=== PATIENT | male | born 1975 | race Caucasian/White ===

== ENCOUNTER 2025-02-04 22:37 | Inpatient (IN) ==
[2025-02-04] MEDS: ONDANSETRON INJ 2 MG/ML 2 ML VIAL IV STA (23:12)
[2025-02-04] MEDS: HYDROmorphone INJ 0.5 MG/0.5 ML SYR IV STA (23:12)
[2025-02-04 23:14] LABS: Appearance Urine Clear (Clear); Bacteria Urine Automated None Seen (None Seen); Epithelial Cell Urine Auto 0-2 /hpf (0-2); Glucose Urine UA Negative (Negative); RBC Urine Automated 0-2 /hpf (0-2); WBC Urine Automated 0-5 /hpf (0-5)
[2025-02-04 23:23] LABS: Hematocrit (blood only) 32.8 % (42.0-52.0); Hemoglobin 11.0 g/dL (14.0-18.0); Immature Granulocytes # (auto) 0.51 K/uL (0.01-0.20); Immature Granulocytes % (auto) 3.7 %; Mean Corpuscular Hemoglobin 29.6 pg (25.0-34.0); Mean Corpuscular Volume 88.2 fL (80.0-100.0); Platelet Count 560 K/uL (130-400); RDW Standard Deviation 43.2 fL (36.4-46.3); Red Blood Count 3.72 M/uL (4.70-6.10); White Blood Count 13.91 K/ul (4.8-10.8)
[2025-02-04 23:46] LABS: Alanine Aminotransferase 13.0 U/L (7-52); Albumin Globulin Ratio 0.9 (0.9-2); Albumin Level 3.8 gm/dl (3.4-5.0); Alkaline Phosphatase 164.0 U/L (34-104); Anion Gap 12.0 (3-11); Bilirubin,Total 0.3 mg/dl (0.2-1.0); Blood Urea Nitrogen 13.0 mg/dl (6-23); Calcium 9.2 mg/dl (8.6-10.3); Carbon Dioxide 24.0 mmol/L (21-32); Chloride 99.0 mmol/L (98-107); Creatinine Clr Calc Pharmacy 77.6 ml/min; Globulin 4.3 gm/dl (2.5-4.0); Glucose 110.0 mg/dl (70-99(Fasting)); Lipase 242.0 U/L (11-82); Potassium 3.8 mmol/L (3.5-5.1); Sodium 135.0 mmol/L (136-145); Total Protein 8.1 gm/dl (6.0-8.3)
--- NOTE | 2025-02-04 23:48 | Emergency Department Note ---
Impression & Plan Acute pancreatitis ED Provider Note NAME: KELLEN CABRERA AGE: 49 SEX: M : 1975 ARRIVES VIA: Walk-In INFORMANT: Patient, ED PROVIDER(S): Bo Alex MD CHIEF COMPLAINT: Pancreatitis, abdominal pain HPI: This is a 49-year-old male with history of alcohol use, presenting for pancreatitis, abdominal pain. Patient states he was at an outside hospital previously for alcohol-induced pancreatitis. He was reportedly placed on phenobarbital. He reports he left AMA due to inadequate pain control. He was getting Dilaudid and fentanyl in the hospital. He reports persistent nausea, vomiting abdominal pain since leaving. No chest pain with this. No shortness of breath. He reports not drinking alcohol since leaving the hospital. ROS: See above HPI for pertinent positives & negatives. A total of 10 systems reviewed and were otherwise negative. PAST MEDICAL HISTORY: See Below PAST SURGICAL HISTORY: See Below FAMILY HISTORY: See Below SOCIAL HISTORY: See Below HOME MEDICATIONS: See Below ALLERGIES: See Below VITALS: See Below PHYSICAL EXAMINATION: General: Disheveled, chronic ill-appearing Head: Normocephalic and atraumatic Eyes: Normal inspection, extraocular muscles intact Ear, nose, throat: Normal external exam Neck: Normal range of motion Respiratory: lungs clear to auscultation bilaterally Cardiovascular: Regular rate/rhythm, no murmur GI: soft, nontender, no guarding or rebound Extremities: nontender, moves all extremities Neuro: The patient awake and alert, appropriately conversive, no focal deficits, symmetric faces Skin: Warm, dry, and intact MEDICAL DECISION MAKING: This is a 49-year-old male history of alcohol use presenting for pancreatitis/abdominal pain. Patient notes he was diagnosed with pancreatitis, duodenitis at outside hospital. He left AMA on , 5 days ago. He did follow with his primary care doctor yesterday with persistent abdominal pain/vomiting and was advised to come back to the ER. He states his works here after his came to this hospital. - Patient notes he has not been drinking since leaving the hospital. He does feel dehydrated. He notes persistent nausea and vomiting. - Will do screening blood work to assess for signs of pancreatitis. Patient does have a tender abdomen and is tachycardic currently. Give fluids, pain control. Consider alcohol withdrawal as well. -Slight leukocytosis to 13.91. Anemia to 11. No significant. There is elevated lipase at 242 -Patient has required doses of Dilaudid and fentanyl while here due to persistent pain. - Will admit to the hospital service due to concerns of continued pancreatitis. He states he does not feel he is in alcohol withdrawal otherwise. Differential diagnosis: Pancreatitis, hepatitis, duodenitis, alcohol withdrawal, diverticulitis Independent History obtained from: [facility] interpreted by me: ECG: None Cardiac Monitoring: An order was placed for continuous cardiac monitoring. The monitor shows a rate of 115 with sinus tachycardia rhythm. Past Med/Surg History Problem List (Updated 02/05/25 @ 04:18 by Bo Alex MD) Acute pancreatitis (Acute) Social History Smoking Status: Light tobacco smoker Hx Alcohol Use: Yes Alcohol type: beer Hx Substance Use: Yes Preferred Language: Spanish Beliefs That Will Affect Care: None Current Living Situation: Other Current Living Situation Comment: Home Feels Safe at Home: Yes Safety Concerns: Feels Safe At This Time Allergies Allergies Allergy/AdvReac Type Severity Reaction Status Date / Time hydrocodone [From Vicodin] Allergy Intermediate SHORT OF Verified 02/04/25 23:43 BREATH/HIVES Home Meds Home Medications Medication Instructions Recorded Confirmed albuterol sulfate 90 mcg/actuation 2 puff inhalation Q4H PRN Wheezing 02/04/25 02/04/25 aerosol inhaler bupropion HCl 300 mg 24 hr tablet, 300 mg PO QAM 02/04/25 02/04/25 extended release (Wellbutrin XL) duloxetine 30 mg capsule,delayed 30 mg PO DAILY 02/04/25 02/04/25 release duloxetine 60 mg capsule,delayed 60 mg PO DAILY 02/04/25 02/04/25 release gabapentin 300 mg capsule 300 mg PO QID 02/04/25 02/04/25 hydroxyzine HCl 50 mg tablet 50 mg PO HS PRN Insomnia 02/04/25 02/04/25 [id number]-fqw-alybm acid-vit 1 tab PO DAILY 02/04/25 02/04/25 K-lycop 400 mcg-20 mcg-370 mcg tablet (Men's 50 Plus Multivitamin) omeprazole 20 mg capsule,delayed 20 mg PO DAILYBB 02/04/25 02/04/25 release ondansetron HCl 4 mg tablet 4 mg PO Q6H PRN NAUSEA/VOMITING 02/04/25 02/04/25 oxycodone 5 mg tablet 5 mg PO Q6H PRN Pain 02/04/25 02/04/25 potassium gluconate 595 mg (99 mg) 595 mg PO DAILY 02/04/25 02/04/25 tablet Results & Data (ED) Vital Signs Vital Signs - 24 hr 02/04/25 22:40 02/04/25 22:57 02/04/25 22:58 Temperature 37.3 C 36.9 C Temperature Source Temporal Artery Scan Oral Pulse Rate 128 H 122 H Pulse Rate [Right Finger] 121 H Pulse Rhythm Regular Pulse Rhythm [Right Finger] Regular Pulse Strength Normal Pulse Strength [Right Finger] Normal Respiratory Rate 18 18 Respiratory Effort / Characteristics Non-Labored Spontaneous Non-Labored Spontaneous Respiratory Depth Normal Normal Respiratory Pattern Regular Regular Blood Pressure 132/86 Blood Pressure [Right Arm] 159/113 H Blood Pressure Mean 101 Blood Pressure Mean [Right Arm] 128 Blood Pressure Position Sitting Blood Pressure Position [Right Arm] Lying Pulse Oximetry 97 97 Oxygen Delivery Method Room Air Room Air Oxygen Flow Rate Sepsis Recent Fever Within 48 Hours No Sepsis New/Unexplained Change in Mental Status N/A Sepsis Action Taken by Nursing No Action Required 02/04/25 23:02 02/05/25 00:38 Temperature Temperature Source Pulse Rate 118 H Pulse Rate [Right Finger] 115 H Pulse Rhythm Regular Pulse Rhythm [Right Finger] Regular Pulse Strength Pulse Strength [Right Finger] Normal Respiratory Rate 20 19 Respiratory Effort / Characteristics Non-Labored Spontaneous Respiratory Depth Normal Respiratory Pattern Regular Blood Pressure Blood Pressure [Right Arm] 120/85 Blood Pressure Mean Blood Pressure Mean [Right Arm] 96 Blood Pressure Position Blood Pressure Position [Right Arm] Lying Pulse Oximetry 98 96 Oxygen Delivery Method Room Air Room Air Oxygen Flow Rate 0 Sepsis Recent Fever Within 48 Hours Sepsis New/Unexplained Change in Mental Status Sepsis Action Taken by Nursing Laboratory Data 02/04/25 23:06 02/04/25 23:06 Lab Results 02/04/25 02/04/25 02/04/25 Range/Units 22:40 23:06 23:26 WBC 13.91 H (4.8-10.8) K/ul RBC 3.72 L (4.70-6.10) M/uL Hgb 11.0 L (14.0-18.0) g/dL Hct 32.8 L (42.0-52.0) % MCV 88.2 (80.0-100.0) fL MCH 29.6 (25.0-34.0) pg MCHC 33.5 (32.0-36.0) g/dL RDW Std Deviation 43.2 (36.4-46.3) fL RDW Coeff of Serenity 13.4 (11.5-14.5) % Plt Count 560 H (130-400) K/uL MPV 9.3 L (9.4-12.4) fL Immature Gran % (Auto) 3.7 % Neut % (Auto) 69.5 % Lymph % (Auto) 17.0 % [place] % (Auto) 7.3 % Eos % (Auto) 1.9 % Baso % (Auto) 0.6 % Neut # (Auto) 9.67 H (1.40-6.50) K/uL Lymph # (Auto) 2.37 (1.20-3.40) K/uL [place] # (Auto) 1.01 H (0.11-0.59) K/uL Eos # (Auto) 0.26 (0.00-0.50) K/uL Baso # (Auto) 0.09 (0.00-0.20) K/uL Immature Gran # (Auto) 0.51 H (0.01-0.20) K/uL Sodium 135 L (136-145) mmol/L Potassium 3.8 (3.5-5.1) mmol/L Chloride 99 (98-107) mmol/L Carbon Dioxide 24 (21-32) mmol/L Anion Gap 12 H (3-11) BUN 13 (6-23) mg/dl Creatinine 1.20 (0.6-1.4) mg/dl Est Cr Clr Drug Dosing 77.6 ml/min eGFR 73.67 BUN/Creatinine Ratio 10.8 (10-20) Glucose 110 H (70-99(Fasting)) mg/dl Lactate 0.8 (0.4-2.0) mmol/L Calcium 9.2 (8.6-10.3) mg/dl Magnesium 1.8 (1.7-2.4) mg/dl Total Bilirubin 0.3 (0.2-1.0) mg/dl AST 16 (13-39) U/L ALT 13 (7-52) U/L Alkaline Phosphatase 164 H (34-104) U/L Total Protein 8.1 (6.0-8.3) gm/dl Albumin 3.8 (3.4-5.0) gm/dl Globulin 4.3 H (2.5-4.0) gm/dl Albumin/Globulin Ratio 0.9 (0.9-2) Lipase 242 H (11-82) U/L Procalcitonin 0.17 (0-0.5) ng/ml Urine Color Yellow Urine Appearance Clear (Clear) Urine pH 5.5 (4.5-7.5) Ur Specific [place] 1.016 (1.000-1.030) Urine Protein 2+ H (Negative) Urine Glucose (UA) Negative (Negative) Urine Ketones Negative (Negative) Urine Blood Trace H (Negative) Urine Nitrite Negative (Negative) Urine Bilirubin Negative (Negative) Urine Urobilinogen Negative (Negative) Ur Leukocyte Esterase Negative (Negative) Urine WBC (Auto) 0-5 (0-5) /hpf Urine RBC (Auto) 0-2 (0-2) /hpf U Hyaline Cast (Auto) 3-5 H (0-2) /lpf U Epithel Cells (Auto) 0-2 (0-2) /hpf Urine Bacteria (Auto) None Seen (None Seen) Urine Comment Ethyl Alcohol mg/dL < 10.0 (<10.0) mg/dl Administered Medications Gabapentin (Gabapentin 300 Mg Cap) 300 mg PO QID LYNN Stop: 03/07/25 01:39 Last Admin: 02/05/25 02:59 Dose: Not Given Documented By: [facility] Hydroxyzine HCl (Hydroxyzine Hcl 25 Mg Tab) 50 mg PO HS PRN PRN Reason: Insomnia Stop: 03/07/25 01:34 Last Admin: 02/05/25 03:21 Dose: 50 mg Documented By: [facility] Potassium Chloride 20 meq/ (Lactated Ringer's) 1,010 mls @ 200 mls/hr IV .Q5H3M STA Stop: 02/05/25 05:40 Last Infusion: 02/05/25 03:00 Dose: 0 mls/hr Documented By: [facility] Admin: 02/05/25 01:17 Dose: 200 mls/hr Documented By: [facility] Morphine Sulfate (Morphine Sulfate 4 Mg/Ml 1 Ml Carp\Vial) 4 mg IV Q4H PRN PRN Reason: Pain Stop: 02/19/25 00:59 Last Admin: 02/05/25 03:22 Dose: 4 mg Documented By: JEANETTE Discontinued Medications Clonidine HCl (Clonidine Hcl 0.1 Mg Tab) 0.1 mg PO NOW STA Stop: 02/05/25 00:35 Last Admin: 02/05/25 00:58 Dose: 0.1 mg Documented By: DUSTIN Fentanyl Citrate (Fentanyl Citrate Pf 100 Mcg/2 Ml Vial) 50 mcg IV NOW STA Stop: 02/05/25 00:14 Last Admin: 02/05/25 00:29 Dose: 50 mcg Documented By: DUSTIN Gabapentin (Gabapentin 600 Mg Tab) 1,200 mg PO NOW ONE; Protocol Stop: 02/05/25 00:49 Last Admin: 02/05/25 02:01 Dose: Not Given Documented By: DUSTIN Hydromorphone HCl (Hydromorphone Inj 0.5 Mg/0.5 Ml Syr) 0.5 mg IV NOW STA Stop: 02/04/25 22:56 Last Admin: 02/04/25 23:12 Dose: 0.5 mg Documented By: DUSTIN Thiamine HCl 100 mg/ Syringe 10 mls @ 2 mls/min IV NOW STA Stop: 02/05/25 00:44 Last Admin: 02/05/25 01:16 Dose: 2 mls/min Documented By: DUSTIN Magnesium Sulfate/Dextrose (Magnesium Sulfate / D5w) 1 gm in 100 mls @ 50 mls/hr IV ONE STA Stop: 02/05/25 03:34 Last Admin: 02/05/25 02:06 Dose: 50 mls/hr Documented By: DUSTIN Ondansetron HCl (Ondansetron Inj 2 Mg/Ml 2 Ml Vial) 4 mg IV NOW STA Stop: 02/04/25 22:45 Last Admin: 02/04/25 23:12 Dose: 4 mg Documented By: DUSTIN Discharge Plan Visit Data Chief Complaint: Abdominal Pain Stated Complaint: ABD PAIN, VOMITING, ACTIVE PANCREATITIS ED Provider: Bo Alex Discharge Problem: Acute pancreatitis Patient Disposition: Admitted As Inpatient Condition: Fair Discharge Instructions Interventions: ED Discharge Assessment Last Done: 02/05/25 03:17
[2025-02-05] MEDS ORDERED: ACETAMINOPHEN 500 MG TAB PO PRN (00:39)
--- NOTE | 2025-02-05 00:39 | History & Physical Report ---
Date of Service February 05, 2025 Assessment & Plan (1) Acute pancreatitis: Plan: Assessment and plan below following discussion of case with ED provider and reviewing patient history/pertinent normal/abnormal diagnostic test results. Alcoholic pancreatitis HCV, untreated today Right neck pain of 3 months duration, etiology to be determined GERD, on PPI chronic anemia, hemoglobin at baseline ADHD, anxiety/mood disorder Hyperglycemia rule out DM past history of substance abuse ongoing tobacco abuse Admit to med/tele given potential for alcohol withdrawal IVF, analgesia GI consult re: pancreatitis AWSS at risk protocol, Librium taper if with signs of EtOH withdrawal, DT precautions CT cervical spine May benefit from MRI cervical spine if above study unremarkable check hemoglobin A1c DVT prophylaxis. SCDs for now until CT cervical spine resulted Full code Text document was generated using [employer] voice recognition software. It may contain grammatical or spelling errors. Kindly contact undersigned for clarification of any documentation item in question. History of Present Illness Chief Complaint: Persistent abdominal pain Primary Care Provider: Dr. Moreno History obtained from patient and records. Medical history significant for HCV, GERD, pancreatitis, chronic anemia (baseline hemoglobin 11-12), osteoarthritis, ADHD, anxiety/mood disorder, history of left pneumothorax, lung nodule, past history of substance abuse, alcohol abuse, ongoing tobacco abuse. Recent confinement [facility] January 25 to 2024 for pancreatitis in the setting of alcohol abuse. 2 CAT scans of the abdomen and pelvis done during confinements. 11 Stranding along the course of the duodenum and pancreas, probably related to acute pancreatitis though can not exclude infectious or inflammatory changes of duodenum or other adjacent retroperitoneal structure. Clinical correlation. 01/27 1. Persistent abnormal thickening of the duodenal throughout with increasing surrounding inflammatory change extending into the right and left anterior pararenal spaces which then extend into the right and left pelvis. There is increased edema of the 4th portion of the duodenum. No perforation of the duodenal or retroperitoneal abscess identified. 2. There is mild stranding around the head of the pancreas, but this most likely represents a duodenal process rather than a pancreatitis. 3. There are a few diverticula of the sigmoid colon but no diverticulitis. 4. Mild increase in right basilar atelectasis and new trace right effusion. 5. No free air. 6. Probable early anasarca in the subcutaneous tissues of the pelvis. 7. Perifissural nodule along the inferior right major fissure.Recommend follow-up CT Chest in 6-12 months. 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 Persistent achy upper abdominal pain with 1 episode of bilious emesis. No chest pain, no SOB. No fever, no chills. Admits to 1 alcoholic beverage intake upon returning home last week. Persistent right sided neck pain going to his ear for 3 months now without arm or leg weakness. No recollection of trauma. Medical History as above Surgical History : Dental surgery, hernia repair, chest tube placement, appendectomy Family History : Hypertension Personal/Social history : 1 pack weekly, alcohol abuse as per records, disabled Allergies Allergy/AdvReac Type Severity Reaction Status Date / Time hydrocodone [From Vicodin] Allergy Intermediate SHORT OF Verified 02/04/25 23:43 BREATH/HIVES Home Medications Medication Instructions Recorded Confirmed Type albuterol sulfate 90 mcg/actuation 2 puff inhalation Q4H PRN Wheezing 02/04/25 02/04/25 History aerosol inhaler bupropion HCl 300 mg 24 hr tablet, 300 mg PO QAM 02/04/25 02/04/25 History extended release (Wellbutrin XL) duloxetine 30 mg capsule,delayed 30 mg PO DAILY 02/04/25 02/04/25 History release duloxetine 60 mg capsule,delayed 60 mg PO DAILY 02/04/25 02/04/25 History release gabapentin 300 mg capsule 300 mg PO QID 02/04/25 02/04/25 History hydroxyzine HCl 50 mg tablet 50 mg PO HS PRN Insomnia 02/04/25 02/04/25 History hhjbaoohbchi-zsx-tzfjj acid-vit 1 tab PO DAILY 02/04/25 02/04/25 History K-lycop 400 mcg-20 mcg-370 mcg tablet (Men's 50 Plus Multivitamin) omeprazole 20 mg capsule,delayed 20 mg PO DAILYBB 02/04/25 02/04/25 History release ondansetron HCl 4 mg tablet 4 mg PO Q6H PRN NAUSEA/VOMITING 02/04/25 02/04/25 History oxycodone 5 mg tablet 5 mg PO Q6H PRN Pain 02/04/25 02/04/25 History potassium gluconate 595 mg (99 mg) 595 mg PO DAILY 02/04/25 02/04/25 History tablet Past Med/Surg History Problem List (Updated 02/05/25 @ 04:18 by Bo Alex MD) Acute pancreatitis (Acute) Social History Smoking Status: Light tobacco smoker Hx Alcohol Use: Yes Alcohol type: beer Hx Substance Use: Yes Preferred Language: Marshallese Beliefs That Will Affect Care: None Current Living Situation: Other Current Living Situation Comment: Home Feels Safe at Home: Yes Safety Concerns: Feels Safe At This Time Review of Systems Review of Systems: As per HPI, all other systems reviewed and negative Physical Exam Physical Exam: GENERAL: Comfortable, slightly restless, obese, no respiratory distress SKIN: Normal color, warm HEENT: [place] palpebral conjunctivae, no ptosis, dry buccal mucosa NECK : Supple, right cervical tenderness CHEST : CTA, no tenderness HEART : Tachycardic, no obvious murmurs ABDOMEN: Some distention, epigastric tenderness EXTREMITIES : No LE swelling/tenderness, palpable pulses, no other conspicuous deformities noted NEUROLOGIC : Coherent, no facial asymmetry, restless, no other gross focality Results & Data Results & Data Vital Signs (Past 12 Hours) Vital Signs Temp Pulse Pulse Resp BP BP Pulse Ox 02/04/25 23:02 118 H 20 98 02/04/25 22:58 36.9 C 121 H 18 159/113 H 97 02/04/25 22:57 122 H 02/04/25 22:40 37.3 C 128 H 18 132/86 97 O2 Del Method O2 Flow Rate 02/04/25 23:02 Room Air 0 02/04/25 22:58 Room Air 02/04/25 22:57 02/04/25 22:40 Room Air Laboratory Results Laboratory Results WBC 13.91 K/ul (4.8-10.8) H 02/04/25 23:06 RBC 3.72 M/uL (4.70-6.10) L 02/04/25 23:06 Hgb 11.0 g/dL (14.0-18.0) L 02/04/25 23:06 Hct 32.8 % (42.0-52.0) L 02/04/25 23:06 MCV 88.2 fL (80.0-100.0) 02/04/25 23:06 MCH 29.6 pg (25.0-34.0) 02/04/25 23:06 MCHC 33.5 g/dL (32.0-36.0) 02/04/25 23:06 RDW Std Deviation 43.2 fL (36.4-46.3) 02/04/25 23:06 RDW Coeff of Serenity 13.4 % (11.5-14.5) 02/04/25 23:06 Plt Count 560 K/uL (130-400) H 02/04/25 23:06 MPV 9.3 fL (9.4-12.4) L 02/04/25 23:06 Immature Gran % (Auto) 3.7 % 02/04/25 23:06 Neut % (Auto) 69.5 % 02/04/25 23:06 Lymph % (Auto) 17.0 % 02/04/25 23:06 [place] % (Auto) 7.3 % 02/04/25 23:06 Eos % (Auto) 1.9 % 02/04/25 23:06 Baso % (Auto) 0.6 % 02/04/25 23:06 Neut # (Auto) 9.67 K/uL (1.40-6.50) H 02/04/25 23:06 Lymph # (Auto) 2.37 K/uL (1.20-3.40) 02/04/25 23:06 [place] # (Auto) 1.01 K/uL (0.11-0.59) H 02/04/25 23:06 Eos # (Auto) 0.26 K/uL (0.00-0.50) 02/04/25 23:06 Baso # (Auto) 0.09 K/uL (0.00-0.20) 02/04/25 23:06 Immature Gran # (Auto) 0.51 K/uL (0.01-0.20) H 02/04/25 23:06 Sodium 135 mmol/L (136-145) L 02/04/25 23:06 Potassium 3.8 mmol/L (3.5-5.1) 02/04/25 23:06 Chloride 99 mmol/L (98-107) 02/04/25 23:06 Carbon Dioxide 24 mmol/L (21-32) 02/04/25 23:06 Anion Gap 12 (3-11) H 02/04/25 23:06 BUN 13 mg/dl (6-23) 02/04/25 23:06 Creatinine 1.20 mg/dl (0.6-1.4) 02/04/25 23:06 Est Cr Clr Drug Dosing 77.6 ml/min 02/04/25 23:06 eGFR 73.67 02/04/25 23:06 BUN/Creatinine Ratio 10.8 (10-20) 02/04/25 23:06 Glucose 110 mg/dl (70-99(Fasting)) H 02/04/25 23:06 Lactate 0.8 mmol/L (0.4-2.0) 02/04/25 23:26 Calcium 9.2 mg/dl (8.6-10.3) 02/04/25 23:06 Total Bilirubin 0.3 mg/dl (0.2-1.0) 02/04/25 23:06 AST 16 U/L (13-39) 02/04/25 23:06 ALT 13 U/L (7-52) 02/04/25 23:06 Alkaline Phosphatase 164 U/L (34-104) H 02/04/25 23:06 Total Protein 8.1 gm/dl (6.0-8.3) 02/04/25 23:06 Albumin 3.8 gm/dl (3.4-5.0) 02/04/25 23:06 Globulin 4.3 gm/dl (2.5-4.0) H 02/04/25 23:06 Albumin/Globulin Ratio 0.9 (0.9-2) 02/04/25 23:06 Lipase 242 U/L (11-82) H 02/04/25 23:06 Urine Color Yellow 02/04/25 22:40 Urine Appearance Clear (Clear) 02/04/25 22:40 Urine pH 5.5 (4.5-7.5) 02/04/25 22:40 Ur Specific [place] 1.016 (1.000-1.030) 02/04/25 22:40 Urine Protein 2+ (Negative) H 02/04/25 22:40 Urine Glucose (UA) Negative (Negative) 02/04/25 22:40 Urine Ketones Negative (Negative) 02/04/25 22:40 Urine Blood Trace (Negative) H 02/04/25 22:40 Urine Nitrite Negative (Negative) 02/04/25 22:40 Urine Bilirubin Negative (Negative) 02/04/25 22:40 Urine Urobilinogen Negative (Negative) 02/04/25 22:40 Ur Leukocyte Esterase Negative (Negative) 02/04/25 22:40 Urine WBC (Auto) 0-5 /hpf (0-5) 02/04/25 22:40 Urine RBC (Auto) 0-2 /hpf (0-2) 02/04/25 22:40 U Hyaline Cast (Auto) 3-5 /lpf (0-2) H 02/04/25 22:40 U Epithel Cells (Auto) 0-2 /hpf (0-2) 02/04/25 22:40 Urine Bacteria (Auto) None Seen (None Seen) 02/04/25 22:40 Urine Comment 02/04/25 22:40 Ethyl Alcohol mg/dL < 10.0 mg/dl (<10.0) 02/04/25 23:06
[2025-02-05] MEDS ORDERED: LORazepam Inj 3 MG in SYRINGE 1.5 ML IV PRN (00:48)
[2025-02-05] MEDS ORDERED: LORazepam Inj 2 MG in SYRINGE 1 ML IV PRN (00:48)
[2025-02-05] MEDS ORDERED: GABAPENTIN 1200MG ALCOHOL WITHDRAWAL LOAD PO STA (00:48)
[2025-02-05] MEDS ORDERED: LORazepam Inj 1 MG in SYRINGE 0.5 ML IV PRN (00:48)
[2025-02-05] MEDS ORDERED: PROMETHAZINE 12.5 MG/50.5 ML BAG IV PRN (01:00)
[2025-02-05 01:11] LABS: Magnesium 1.8 mg/dl (1.7-2.4)
[2025-02-05] MEDS: THIAMINE HCL 100 MG in SYRINGE 9 ML IV STA (01:16)
[2025-02-05] MEDS: POTASSIUM CHLORIDE 20 MEQ in LACTATED RINGER'S 1,000 ML IV STA (01:17)
[2025-02-05] MEDS ORDERED: MELATONIN 3 MG TAB PO PRN (01:36)
[2025-02-05] MEDS: GABAPENTIN 600 MG TAB PO ONE (02:01)
[2025-02-05] MEDS: MAGNESIUM SULFATE / D5W 1 GM/100 ML BAG IV STA (02:06)
--- NOTE | 2025-02-05 02:20 | CT Scan Report ---
EXAM: CT cervical spine wo con CLINICAL HISTORY: pain TECHNIQUE: Computed tomography of the cervical spine was performed without intravenous contrast. Contiguous axial images were obtained from the skull base to T2, with sagittal and coronal reformatted images reconstructed from the axial data. CT scan was performed according to ALARA (as low as reasonably achievable). COMPARISON: None. FINDINGS: Loss of cervical lordosis is suggestive of the possibility of muscle spasm or positional change. Degenerative changes are present in the cervical spine in the form of multilevel marginal osteophytes, disc space reduction, and facet arthrosis. Mild anterolisthesis of the C2 over C3 vertebra is noted. The cervical vertebral bodies are normal in height and alignment, with no evidence of fracture or subluxation. The lateral masses of C1 are symmetrical, and the dens is intact. Prevertebral soft tissues are not widened. The remaining suprahyoid and infrahyoid soft tissues in the neck are unremarkable. Posterior uncovertebral arthrosis is noted at the C3-C4, C5-C6, and C6-C7 levels, which is indenting the ventral thecal sac and causes bilateral neuroforaminal narrowing. The thyroid gland appears unremarkable. IMPRESSION: 1. No acute fracture or subluxation in the cervical spine. 2. Cervical spondylosis. Electronically signed by Marcus Castillo 02-05-2025 02:20 AM
[2025-02-05] MEDS: GABAPENTIN 300 MG CAP PO SCH (02:59)
[2025-02-05] MEDS: MoRPHine SULFATE 4 MG/ML 1 ML CARP\\VIAL IV PRN (03:22)
--- NOTE | 2025-02-05 04:45 | XRay Report ---
EXAM: XR orbits for MRI CLINICAL HISTORY: Screening for foreign body for MRI. TECHNIQUE: X-ray examination of the orbits was performed in PA and lateral views. COMPARISON: None. FINDINGS: Orbital Margins The bony orbital margins appear intact bilaterally, with no evidence of fractures, deformities, or lytic lesions. The zygomatic arches are symmetrical and show no abnormalities. Soft Tissues A tiny linear density is seen overlapping the right frontal region. The lateral view shows its location within the soft tissues outside the bone, measuring 2 x 1 mm. The periorbital soft tissues are unremarkable, with no evidence of swelling, mass effect, or foreign bodies. The extraocular muscles are not directly visualized on X-ray, but there are no signs of displacement or other indirect abnormalities. Foreign Bodies No radiopaque foreign bodies are identified within the orbits or surrounding regions. IMPRESSION: 1. No radiographic evidence of metallic foreign bodies in the orbits. 2. However, a tiny linear density is seen overlapping the right frontal region. The lateral view shows its location within the soft tissues, outside the bone. This requires clinical correlation and can represent a foreign body in the soft tissues. Electronically signed by Jaun Ag 02-05-2025 04:45 AM
--- NOTE | 2025-02-05 05:08 | XRay Report ---
EXAM: XR chest 1V portable CLINICAL HISTORY: PRE MRI. TECHNIQUE: An X-ray image of the chest was obtained in the anteroposterior (PA) projection. COMPARISON: No prior studies are available for comparison. FINDINGS: Pulmonary Parenchyma: The lungs are clear bilaterally. There is no evidence of consolidation, collapse, or focal opacities. No pulmonary nodules are identified. There is no evidence of pleural effusion or pleural thickening. Heart and Mediastinum: The heart size and shape are normal. There is no mediastinal widening or masses. No hilar or mediastinal lymphadenopathy is present. Bony Thorax: The bony thorax appears intact without fractures or deformities. Soft Tissues: The soft tissues overlying the chest wall are unremarkable. IMPRESSION: No acute cardiopulmonary abnormalities are identified. Electronically signed by Jaun Ag 02-05-2025 05:07 AM
[2025-02-05] MEDS: LORazepam 0.5 MG TAB PO PRN (06:44)
[2025-02-05] MEDS ORDERED: GABAPENTIN 600 MG TAB PO SCH ×2 (07:00→21:00)
[2025-02-05] MEDS: LACTATED RINGER'S 1,000 ML IV SCH (07:56)
[2025-02-05] MEDS ORDERED: MoRPHine SULFATE 4 MG/ML 1 ML CARP\\VIAL IV PRN (07:59)
[2025-02-05] MEDS: MULTIVITAMIN TAB PO SCH (08:06)
[2025-02-05] MEDS: FOLIC ACID 1 MG TAB PO SCH (08:07)
[2025-02-05] MEDS: ENOXAPARIN INJ 40 MG/0.4 ML SYR SQ SCH (08:07)
[2025-02-05 08:26] LABS: Hematocrit (blood only) 32.2 % (42.0-52.0); Hemoglobin 10.9 g/dL (14.0-18.0); Immature Granulocytes # (auto) 0.31 K/uL (0.01-0.20); Immature Granulocytes % (auto) 3.0 %; Mean Corpuscular Hemoglobin 30.0 pg (25.0-34.0); Mean Corpuscular Volume 88.7 fL (80.0-100.0); Platelet Count 537 K/uL (130-400); RDW Standard Deviation 42.8 fL (36.4-46.3); Red Blood Count 3.63 M/uL (4.70-6.10); White Blood Count 10.23 K/ul (4.8-10.8)
[2025-02-05 08:36] LABS: Hemoglobin A1C 5.2 % (4.5-5.6)
[2025-02-05 08:44] LABS: Alanine Aminotransferase 13.0 U/L (7-52); Albumin Globulin Ratio 0.9 (0.9-2); Albumin Level 4.1 gm/dl (3.4-5.0); Alkaline Phosphatase 167.0 U/L (34-104); Anion Gap 12.0 (3-11); Bilirubin,Total 0.4 mg/dl (0.2-1.0); Blood Urea Nitrogen 15.0 mg/dl (6-23); Calcium 9.7 mg/dl (8.6-10.3); Carbon Dioxide 24.0 mmol/L (21-32); Chloride 99.0 mmol/L (98-107); Creatinine Clr Calc Pharmacy 72.2 ml/min; Globulin 4.5 gm/dl (2.5-4.0); Glucose 90.0 mg/dl (70-99(Fasting)); Potassium 3.8 mmol/L (3.5-5.1); Sodium 135.0 mmol/L (136-145); Total Protein 8.6 gm/dl (6.0-8.3)
[2025-02-05] MEDS ORDERED: FAMOTIDINE 20MG IV PUSH 20 MG/5 ML SYR IV PRN (09:45)
--- NOTE | 2025-02-05 10:01 | Gastrointestinal Consultation ---
Date of Consultation February 05, 2025 Assessment & Plan (1) Abdominal pain: (2) Abnormal CT scan, small bowel: Plan Unclear if pancreatitis vs duodenal process as noted on CT imaging from outside facility on 01/27. -Keep NPO -IV BID PPI -EGD today for further evaluation of symptoms and CT findings Supervising Physician Co-Signing Physician Notes I personally saw and examined the patient. I have reviewed the chart and agree with the documentation provided by the BOOM TENDER including discussion about the assessment, treatment and plan. Briefly, 49 yo male admitted to [facility] for a possible diagnosis of pancreatitis. He was recently admitted at another medical facility and had a CT scan of the abdomen/pelvis on 01/27 that showed duodenal inflammation that radiologist felt was more guest services representative of a duodenal process rather than pancreatitis. Patient left that hospital before resolution due to obligations and what he felt to be inadequate pain control. He presented to [facility] with worsening abdominal pain. He notes he uses NSAIDs. He takes Omeprazole 20 mg daily at home. His pain is out of proportion to the pancreatitis or the exam. I think it is reasonable to do an endoscopy to rule out duodenal ulcer or inflammation. N.p.o. supportive care for now. History of Present Illness Reason for Consultation: pancreatitis Attending Physician: Mehrdad Gomez MD History of Present Illness Patient is a 49 yo male admitted to [facility] for a possible diagnosis of pancreatitis. He was recently admitted at another medical facility and had a CT scan of the abdomen/pelvis on 01/27 that showed duodenal inflammation that r adiologist felt was more guest services representative of a duodenal process rather than pancreatitis. Patient left that hospital before resolution due to obligations and what he felt to be inadequate pain control. He presented to [facility] with worsening abdominal pain. He notes he uses NSAIDs. He takes Omeprazole 20 mg daily at home. His Lipase here was 242. ALT was 13, AST 19, Alk phos 167, and T bili 0.4. He denies gastrointestinal history previously, though he notes he has had EGDs previously. I do not have these reports. No pertinent family history. He does have a history of alcohol use. He notes 1 drink since his hospitalization in [place] on 01/27/25. Patient notes his pain is uncontrolled. He reports neck and back pain. He takes Oxycodone at home as well as Duloxetine and Gabapentin. He is currently NPO. Allergies Allergy/AdvReac Type Severity Reaction Status Date / Time hydrocodone [From Vicodin] Allergy Intermediate SHORT OF Verified 02/04/25 23:43 BREATH/HIVES Home Medications Medication Instructions Recorded Confirmed Type albuterol sulfate 90 mcg/actuation 2 puff inhalation Q4H PRN Wheezing 02/04/25 02/04/25 History aerosol inhaler bupropion HCl 300 mg 24 hr tablet, 300 mg PO QAM 02/04/25 02/04/25 History extended release (Wellbutrin XL) duloxetine 30 mg capsule,delayed 30 mg PO DAILY 02/04/25 02/04/25 History release duloxetine 60 mg capsule,delayed 60 mg PO DAILY 02/04/25 02/04/25 History release gabapentin 300 mg capsule 300 mg PO QID 02/04/25 02/04/25 History hydroxyzine HCl 50 mg tablet 50 mg PO HS PRN Insomnia 02/04/25 02/04/25 History izxepugdvfqq-eeq-upvup acid-vit 1 tab PO DAILY 02/04/25 02/04/25 History K-lycop 400 mcg-20 mcg-370 mcg tablet (Men's 50 Plus Multivitamin) omeprazole 20 mg capsule,delayed 20 mg PO DAILYBB 02/04/25 02/04/25 History release ondansetron HCl 4 mg tablet 4 mg PO Q6H PRN NAUSEA/VOMITING 02/04/25 02/04/25 History oxycodone 5 mg tablet 5 mg PO Q6H PRN Pain 02/04/25 02/04/25 History potassium gluconate 595 mg (99 mg) 595 mg PO DAILY 02/04/25 02/04/25 History tablet Patient History Social History Smoking Status: Light tobacco smoker Hx Alcohol Use: Yes Alcohol type: beer Hx Substance Use: Yes Preferred Language: Croatian Beliefs That Will Affect Care: None Current Living Situation: Other Current Living Situation Comment: Home Feels Safe at Home: Yes Safety Concerns: Feels Safe At This Time Review of Systems Constitutional: no fever and no chills Gastrointestinal: + abdominal pain Physical Exam Physical Exam: Did not physically palpate abdomen due to patient agitation; Will attempt to examine again today Constitutional: well developed Respiratory: normal respiratory effort Psychiatric: Orientation: alert and oriented x 3 Results & Data Vital Signs (Past 12 Hours) Vital Signs Temp Pulse Pulse Resp BP BP Pulse Ox 02/05/25 06:45 100 H 02/05/25 03:38 111 H 02/05/25 03:17 108 H 16 96 02/05/25 03:01 37.4 C 111 H 16 127/80 97 02/05/25 03:00 02/05/25 02:00 110 H 16 133/88 97 02/05/25 01:38 112 H 18 120/85 98 02/05/25 00:38 115 H 19 120/85 96 02/04/25 23:02 118 H 20 98 02/04/25 22:58 36.9 C 121 H 18 159/113 H 97 02/04/25 22:57 122 H 02/04/25 22:40 37.3 C 128 H 18 132/86 97 O2 Del Method O2 Flow Rate 02/05/25 06:45 02/05/25 03:38 02/05/25 03:17 Room Air 02/05/25 03:01 Room Air 02/05/25 03:00 Room Air 02/05/25 02:00 Room Air 02/05/25 01:38 Room Air 02/05/25 00:38 Room Air 02/04/25 23:02 Room Air 0 02/04/25 22:58 Room Air 02/04/25 22:57 02/04/25 22:40 Room Air PG Care Time/CCT Total # of Minutes Spent Total Time Spent with Patient: Total time spent is greater than 50% in coordination of care (as documented) at patient's floor/unit and/or counseling patient: Coding Level of Care Code 21981 IN/OBS CONSULT LVL 4,60M Diagnoses Abdominal pain R10.[address] scan, small bowel R93.3
[2025-02-05] MEDS: HYDROmorphone INJ 0.5 MG/0.5 ML SYR IV PRN (10:16)
--- NOTE | 2025-02-05 11:40 | Anesthesiology Consultation ---
Date of Service February 05, 2025 Assessment & Plan Chart Review Chart Review: Acceptable Risk for Surgery and Patient NOT seen in Pre Admission Testing Consults Requested none ASA ASA3 Proposed Anesthesia Anesthesia Type: MAC Risk / Benefits Reviewed With: PT / POA / Parent / Guardian, Accepts Plan and Informed Consent Obtained History Surgery Operation Date: 02/05/25 16:30 Proposed Procedures p Esophagogastroduodenoscopy Jatin - Musa Steiner MD Height/Weight Height: 5 ft 6 in Weight: 90.6 kg Allergies Allergy/AdvReac Type Severity Reaction Status Date / Time hydrocodone [From Vicodin] Allergy Intermediate SHORT OF Verified 02/04/25 23:43 BREATH/HIVES Medications Home Medications Medication Instructions Recorded Confirmed Last Taken albuterol sulfate 90 mcg/actuation 2 puff inhalation Q4H PRN Wheezing 02/04/25 02/04/25 Unknown aerosol inhaler bupropion HCl 300 mg 24 hr tablet, 300 mg PO QAM 02/04/25 02/04/25 02/03/25 extended release (Wellbutrin XL) duloxetine 30 mg capsule,delayed 30 mg PO DAILY 02/04/25 02/04/25 02/03/25 release duloxetine 60 mg capsule,delayed 60 mg PO DAILY 02/04/25 02/04/25 02/03/25 release gabapentin 300 mg capsule 300 mg PO QID 02/04/25 02/04/25 02/03/25 hydroxyzine HCl 50 mg tablet 50 mg PO HS PRN Insomnia 02/04/25 02/04/25 Unknown mfjigyqkrqoo-zen-dwdux acid-vit 1 tab PO DAILY 02/04/25 02/04/25 02/03/25 K-lycop 400 mcg-20 mcg-370 mcg tablet (Men's 50 Plus Multivitamin) omeprazole 20 mg capsule,delayed 20 mg PO DAILYBB 02/04/25 02/04/25 02/03/25 release ondansetron HCl 4 mg tablet 4 mg PO Q6H PRN NAUSEA/VOMITING 02/04/25 02/04/25 Unknown oxycodone 5 mg tablet 5 mg PO Q6H PRN Pain 02/04/25 02/04/25 Unknown potassium gluconate 595 mg (99 mg) 595 mg PO DAILY 02/04/25 02/04/25 02/03/25 tablet Active Medications Generic Name Dose Route Start Last Admin Trade Name Freq PRN Reason Stop Dose Admin Bupropion HCl 300 mg 02/05/25 09:00 02/05/25 08:06 Bupropion Xl 300 Mg Tabcr PO 03/07/25 08:59 300 mg QAM LYNN Administration Duloxetine HCl 90 mg 02/05/25 09:00 02/05/25 08:06 Duloxetine Hcl 30 Mg Cap PO 03/07/25 08:59 90 mg DAILY LYNN Administration Enoxaparin Sodium 40 mg 02/05/25 09:00 02/05/25 08:07 Enoxaparin Inj 40 Mg/0.4 Ml Syr SQ 03/07/25 08:59 40 mg QAM LYNN Administration Folic Acid 1 mg 02/05/25 09:00 02/05/25 08:07 Folic Acid 1 Mg Tab PO 03/07/25 08:59 1 mg QAM LYNN Administration Gabapentin 300 mg 02/05/25 01:40 02/05/25 08:05 Gabapentin 300 Mg Cap PO 03/07/25 01:39 Not Given QID LYNN Hydromorphone HCl 0.5 mg 02/05/25 09:32 02/05/25 10:16 Hydromorphone Inj 0.5 Mg/0.5 Ml Syr IV 02/19/25 09:31 0.5 mg Q3H PRN Administration Mod-Sev Pain (Scale 4-10) Hydroxyzine HCl 50 mg 02/05/25 01:35 02/05/25 03:21 Hydroxyzine Hcl 25 Mg Tab PO 03/07/25 01:34 50 mg HS PRN Administration Insomnia Lactated Ringer's 1,000 mls @ 100 mls/hr 02/05/25 06:00 02/05/25 07:56 Lr IV 02/06/25 05:59 100 mls/hr .Q10H LYNN Administration Lorazepam 0.5 mg 02/05/25 06:07 02/05/25 06:44 Lorazepam 0.5 Mg Tab PO 03/07/25 06:06 0.5 mg TID PRN Administration Anxiety Multivitamins 1 tab 02/05/25 09:00 02/05/25 08:06 Multivitamin Tab PO 03/07/25 08:59 1 tab QAM LYNN Administration Oxycodone HCl 5 - 10 mg 02/05/25 00:35 02/05/25 08:02 Oxycodone Hcl Ir 5 Mg Tab (Immediate Release) PO 02/19/25 00:34 10 mg QID PRN Administration Pain Pantoprazole Sodium 40 mg 02/05/25 06:30 02/05/25 05:32 Pantoprazole 40 Mg Tab PO 03/07/25 06:29 40 mg DAILYBB LYNN Administration NPO Date Last Intake of Fluids: 02/05/25 Time Last Intake of Fluids: 08:00 Date Last Intake of Solids: 02/04/25 Exercise / Class Metabolic Activity II 4-5 Yardwork/Stairs/Walk up hill Past Anesthesia History No Hx of Anesthesia Complications and No Family Hx of Anesthesia Complications History of PONV No Hx of PONV and No Hx of Motion Sickness Social History Smoking Status: Light tobacco smoker Hx Alcohol Use: Yes Alcohol type: beer alcohol intake frequency: 3 or more drinks per day Alcohol Intake Frequency Comment: "socially" Hx Substance Use: Yes substance use type: marijuana Last Used Substance: Just Prior to Arrival Review of Systems Gastrointestinal: + abdominal pain and + vomiting Physical Exam Vital Signs Last Vital Signs Temp 37 C 02/05/25 11:28 Pulse 105 H 02/05/25 11:28 Resp 16 02/05/25 11:28 BP 155/98 H 02/05/25 11:28 Pulse Ox 94 02/05/25 11:28 O2 Del Method Room Air 02/05/25 11:28 O2 Flow Rate 0 02/04/25 23:02 Constitutional + obese ENMT Mouth: + dental caries and + chipped teeth (missing teeth) Thyromental Distance: > or= 3.5 Finger Breadths Mallampati Class: III Neck normal visual inspection Respiratory normal respiratory effort; no respiratory distress Cardiovascular Rate/Rhythm: regular rate and regular rhythm Neurologic moves all extremities Motor/Sensory: no sensory deficit Psychiatric Orientation: alert and oriented x 3 Testing Laboratory Results 02/05/25 07:26 02/05/25 07:26 Hemoglobin A1c 5.2 % (4.5-5.6) 02/05/25 07:26 Urine Color Yellow 02/04/25 22:40 Urine Appearance Clear (Clear) 02/04/25 22:40 Urine pH 5.5 (4.5-7.5) 02/04/25 22:40 Ur Specific [place] 1.016 (1.000-1.030) 02/04/25 22:40 Urine Protein 2+ (Negative) H 02/04/25 22:40 Urine Glucose (UA) Negative (Negative) 02/04/25 22:40 Urine Ketones Negative (Negative) 02/04/25 22:40 Urine Nitrite Negative (Negative) 02/04/25 22:40 Ur Leukocyte Esterase Negative (Negative) 02/04/25 22:40 Urine WBC (Auto) 0-5 /hpf (0-5) 02/04/25 22:40 Urine RBC (Auto) 0-2 /hpf (0-2) 02/04/25 22:40 U Hyaline Cast (Auto) 3-5 /lpf (0-2) H 02/04/25 22:40 U Epithel Cells (Auto) 0-2 /hpf (0-2) 02/04/25 22:40 Urine Bacteria (Auto) None Seen (None Seen) 02/04/25 22:40
--- NOTE | 2025-02-05 12:09 | GI REPORT ---
[facility] Patient: KELLEN CABRERA : 1975 Sex at : Male Age: 49 Years Procedure: Upper GI endoscopy Date: 02/05/2025 Attending Physician: Musa Steiner MD Referring MD: Referred Self; Mehrdad Gomez Md Indications: - Epigastric abdominal pain - Abnormal CT of the GI tract Medications: - Monitored Anesthesia Care Complications: - No immediate complications. Estimated Blood Loss: - Estimated blood loss: None. Procedure: - Prior to the procedure, a History and Physical was performed, and patient medications and allergies were reviewed. The patient's tolerance of previous anesthesia was also reviewed. The risks and benefits of the procedure and the sedation options and risks were discussed with the patient. All questions were answered, and informed consent was obtained. Prior Anticoagulants: The patient has taken no anticoagulant or antiplatelet agents. ASA Grade Assessment: III - A patient with severe systemic disease. After reviewing the risks and benefits, the patient was deemed in satisfactory condition to undergo the procedure. - The egd scope was introduced through the mouth and advanced to the third part of the duodenum. - The upper GI endoscopy was accomplished without difficulty. - The patient tolerated the procedure well. Findings: - The examined esophagus was normal. - Localized moderate inflammation characterized by erythema was found in the gastric antrum and in the gastric body. Biopsies were taken with a cold forceps for histology. - Localized mildly erythematous mucosa without active bleeding and with no stigmata of bleeding was found in the duodenal bulb. Impression: - Normal esophagus. - Acute gastritis, characterized by erythema. Biopsied. - Erythematous duodenopathy. - The current GI findings do not explain the amount of pain the patient is having and certainly there is no ulceration present Recommendation: - Discharge patient to home (ambulatory). - Resume previous diet. - Continue present medications. - Await pathology results. - Return to primary care physician as previously scheduled. - Patient has a contact number available for emergencies. The signs and symptoms of potential delayed complications were discussed with the patient. Return to normal activities tomorrow. Written discharge instructions were provided to the patient. - I think at this point, if the patient is not improving with this pain, we should consider repeating a CT with IV contrast to see if there is any more pancreatitis present. He certainly does not have duodenitis that severe or duodenal ulceration to explain his symptoms. Procedure Code(s): - 11471, Esophagogastroduodenoscopy, flexible, transoral; with biopsy, single or multiple Diagnosis Code(s): - R10.13, Epigastric pain - R93.3, Abnormal findings on diagnostic imaging of other parts of digestive tract - K29.00, Acute gastritis without bleeding - K31.89, Other diseases of stomach and duodenum CPT(R) - 2022 copyright [employer]. All Rights Reserved. The CPT codes, CCI edits and ICD codes generated are intended as suggestions and were generated based on input data. These codes are preliminary and upon lead electrical controls engineer review may be revised to meet current compliance and payer requirements. The provider is responsible for the final determination of appropriate codes, and modifiers. Musa Steiner MD This document has been electronically signed. Note Initiated:02/05/2025 Note Completed:02/05/2025 12:08 PM \\[email or web address]\[email or web address]\[id number]
--- NOTE | 2025-02-05 12:21 | Anesthesiology Progress Note ---
Date of Service February 05, 2025 Anesthesia Post Procedure Vital Signs Vital Signs: Temp Pulse Pulse Resp BP BP Pulse Ox 02/05/25 11:28 37 C 105 H 16 155/98 H 94 02/05/25 08:00 36.9 C 102 H 16 132/80 96 02/05/25 07:00 02/05/25 06:45 100 H 02/05/25 03:38 111 H 02/05/25 03:17 108 H 16 96 02/05/25 03:01 37.4 C 111 H 16 127/80 97 02/05/25 03:00 02/05/25 02:00 110 H 16 133/88 97 02/05/25 01:38 112 H 18 120/85 98 02/05/25 00:38 115 H 19 120/85 96 02/04/25 23:02 118 H 20 98 02/04/25 22:58 36.9 C 121 H 18 159/113 H 97 02/04/25 22:57 122 H 02/04/25 22:40 37.3 C 128 H 18 132/86 97 O2 Del Method O2 Flow Rate 02/05/25 11:28 Room Air 02/05/25 08:00 Room Air 02/05/25 07:00 Room Air 02/05/25 06:45 02/05/25 03:38 02/05/25 03:17 Room Air 02/05/25 03:01 Room Air 02/05/25 03:00 Room Air 02/05/25 02:00 Room Air 02/05/25 01:38 Room Air 02/05/25 00:38 Room Air 02/04/25 23:02 Room Air 0 02/04/25 22:58 Room Air 02/04/25 22:57 02/04/25 22:40 Room Air Pain Intensity Abdomen: Pain Intensity: 7 Transfer of Care Handoff Completed per policy Notes Mental Status: alert / awake / arousable and participated in evaluation Patient Amnestic to Procedure: Yes Nausea / Vomiting: adequately controlled Pain: adequately controlled Airway Patency, RR, SpO2: stable & adequate BP & HR: stable & adequate Hydration State: stable & adequate Anesthetic Complications: no major complications apparent and Pt Satisfied with anesthetic care
[2025-02-05] MEDS: PROPOFOL IV EMULSION 10 MG/ML 20 ML VIAL IV ONE (13:11)
[2025-02-05] MEDS: LIDOCAINE 2% 2 ML VIAL/AMP(20MG/ML) INFIL ONE ×3 (13:11)
--- NOTE | 2025-02-05 13:33 | Hospitalist Progress Note ---
Date of Service February 05, 2025 Assessment & Plan (1) Acute pancreatitis: Plan: Alcoholic pancreatitis Acute gastritis --Reviewed outpatient CT suggestive of abnormal thickening of duodenum with surrounding inflammatory change. Mild stranding around the head of pancreas. Sigmoid diverticuli noted. Perifissural nodule along the inferior right major fissure. --S/P EGD:Normal esophagus. Acute gastritis, characterized by erythema. Biopsied. Erythematous duodenopathy. --Lipase 242 --Pathology pending Appreciate GI input Continue IV Protonix twice daily Will need repeat CT if no improvement Advance diet as tolerated Continue IV fluids Counseled to quit alcohol use Chronic cervical pain --CT Neck:No acute fracture or subluxation in the cervical spine. Cervical spondylosis. - MRI pending HCV untreated GERD on PPI Other Chronic Conditions: Chronic anemia ADHD, anxiety/mood disorder Past history of substance abuse ongoing tobacco abuse Continue home medications as able DVT Px: SCDs for now Code Status Full code Admission and Anticipated Discharge Date Admission Date: February 05, 2025 Subjective Patient is seen and examined at bedside States having abdominal pain Also reports right-sided neck pain which has been ongoing Denies any chest pain, dyspnea, nausea, vomiting, dizziness Patient had EGD earlier today Review of Systems Review of Systems: All systems reviewed & are unremarkable except as noted in Subjective Physical Exam Physical Exam: Physical Exam: Vitals signs as noted above General Appearance:Overweight, no apparent distress Head: normocephalic, Atraumatic Eyes: normal inspection, EOMI Neck: supple, Trachea midline Respiratory/Chest: Normal breath sounds, CTA, No accessory muscle use Cardiovascular: S1, S2, No murmur Abdomen/GI:Soft, epigastric tender, Bowel sounds present Extremities/Musculoskeletal:normal inspection, no edema Neurologic/Psych:AAOX3, grossly no focal neurological deficits Skin: normal color, warm Results & Data Results & Data Vital Signs (Past 12 Hours) Vital Signs Temp Pulse Pulse Resp BP Pulse Ox O2 Del Method 02/05/25 12:32 98 H 16 154/100 H 96 Room Air 02/05/25 12:23 102 H 16 159/103 H 95 Room Air 02/05/25 12:04 36 C L 93 H 16 111/76 97 Room Air 02/05/25 11:28 37 C 105 H 16 155/98 H 94 Room Air 02/05/25 08:00 36.9 C 102 H 16 132/80 96 Room Air 02/05/25 07:00 Room Air 02/05/25 06:45 100 H 02/05/25 03:38 111 H 02/05/25 03:17 108 H 16 96 Room Air 02/05/25 03:01 37.4 C 111 H 16 127/80 97 Room Air 02/05/25 03:00 Room Air 02/05/25 02:00 110 H 16 133/88 97 Room Air 02/05/25 01:38 112 H 18 120/85 98 Room Air Laboratory Results Short CBC 02/04/25 02/05/25 Range/Units 23:06 07:26 WBC 13.91 H 10.23 (4.8-10.8) K/ul Hgb 11.0 L 10.9 L (14.0-18.0) g/dL Hct 32.8 L 32.2 L (42.0-52.0) % Plt Count 560 H 537 H (130-400) K/uL BMP 02/04/25 02/05/25 23:06 07:26 Sodium 135 L 135 L Potassium 3.8 3.8 Chloride 99 99 Carbon Dioxide 24 24 BUN 13 15 Creatinine 1.20 1.29 Glucose 110 H 90 Calcium 9.2 9.7 Liver Function 02/04/25 02/05/25 Range/Units 23:06 07:26 Total Bilirubin 0.3 0.4 (0.2-1.0) mg/dl AST 16 19 (13-39) U/L ALT 13 13 (7-52) U/L Alkaline Phosphatase 164 H 167 H (34-104) U/L Albumin 3.8 4.1 (3.4-5.0) gm/dl Urine 02/04/25 Range/Units 22:40 Urine Color Yellow Urine Appearance Clear (Clear) Urine pH 5.5 (4.5-7.5) Ur Specific [place] 1.016 (1.000-1.030) Urine Protein 2+ H (Negative) Urine Glucose (UA) Negative (Negative)
[2025-02-05] MEDS: FAMOTIDINE 20MG IV PUSH 20 MG/5 ML SYR IV SCH (13:44)
--- NOTE | 2025-02-05 15:37 | Magnetic Resonance Report ---
MRI OF THE CERVICAL SPINE WITHOUT CONTRAST CLINICAL HISTORY: Right-sided neck pain for 3 months. COMPARISON: Cervical spine CT February 05, 2025. TECHNIQUE: Utilizing a 1.5 Nusrat magnet and dedicated coil, multiplanar, multiecho imaging of the ce rvical spine was performed without IV contrast. FINDINGS: There is reversal of the cervical lordosis. Vertebral body heights are maintained. No marrow replacem ent is present. There is moderate marrow and mild soft tissue edema centered on the right C2-C3 facet joint. This is degenerative in etiology. Exam is mildly compromised by motion artifact but is diagno stic. There is no intracanalicular mass or fluid collection. Cervical cord signal and caliber are nor mal. There is no prevertebral edema. C2-C3: There is mild disc bulge. This slightly effaces the ventral thecal sac. There is mild central canal stenosis. Severe right facet arthrosis is present. There is mild narrowing of the right neural foramen. The left neural foramen is patent. C3-C4: Diffuse disc bulge is present. This contacts the ventral aspect of the cord. There is mild ce ntral canal stenosis. The neural foramen are patent. There is moderate facet arthrosis. C4-C5: The central canal and neural foramen are patent. There is mild facet arthrosis. C5-C6: There is mild disc bulge with osteophyte formation. The central canal is patent. Uncovertebra l hypertrophy and facet arthrosis result in mild bilateral neural foraminal stenosis. C6-C7: There is mild disc bulge. There is mild facet arthrosis. Neural foramen are patent. C7-T1: There is mild disc bulge. The central canal and neural foramen are patent. IMPRESSION: 1. No cervical spine fractures. No suspicious marrow replacement. 2. 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 This could account for the patient's symptoms. 3. Overall, moderate multilevel facet arthrosis and mild degenerative disc disease within the cervica l spine. No severe central canal stenosis. Mild multilevel central canal stenosis. 4. Multilevel neural foraminal stenosis, as above. 5. Reversal of the cervical lordosis. ACT 112: Negative or not required by law. Electronically signed by: Stefan Odonnell M.D. 02/05/2025 3:34 PM
[2025-02-05] MEDS: PANTOprazole 40 MG/10 ML SYR IV SCH (20:42)
[2025-02-06 05:37] VITALS: O2SAT 96
[2025-02-06 06:32] LABS: Hematocrit (blood only) 32.0 % (42.0-52.0); Hemoglobin 10.6 g/dL (14.0-18.0); Mean Corpuscular Hemoglobin 29.6 pg (25.0-34.0); Mean Corpuscular Volume 89.4 fL (80.0-100.0); Platelet Count 558 K/uL (130-400); RDW Standard Deviation 43.3 fL (36.4-46.3); Red Blood Count 3.58 M/uL (4.70-6.10); White Blood Count 9.35 K/ul (4.8-10.8)
[2025-02-06 06:55] LABS: Alanine Aminotransferase 13.0 U/L (7-52); Albumin Globulin Ratio 0.9 (0.9-2); Albumin Level 3.7 gm/dl (3.4-5.0); Alkaline Phosphatase 143.0 U/L (34-104); Anion Gap 9.0 (3-11); Bilirubin,Total 0.3 mg/dl (0.2-1.0); Blood Urea Nitrogen 13.0 mg/dl (6-23); Calcium 9.5 mg/dl (8.6-10.3); Carbon Dioxide 26.0 mmol/L (21-32); Chloride 103.0 mmol/L (98-107); Creatinine Clr Calc Pharmacy 78.7 ml/min; Globulin 3.9 gm/dl (2.5-4.0); Glucose 111.0 mg/dl (70-99(Fasting)); Lipase 205.0 U/L (11-82); Potassium 4.7 mmol/L (3.5-5.1); Sodium 138.0 mmol/L (136-145); Total Protein 7.6 gm/dl (6.0-8.3)
--- NOTE | 2025-02-06 07:51 | Hospitalist Progress Note ---
Date of Service February 06, 2025 Assessment & Plan (1) Acute pancreatitis: Plan: Alcoholic pancreatitis Acute gastritis --Reviewed outpatient CT suggestive of abnormal thickening of duodenum with surrounding inflammatory change. Mild stranding around the head of pancreas. Sigmoid diverticuli noted. Perifissural nodule along the inferior right major fissure. --S/P EGD:Normal esophagus. Acute gastritis, characterized by erythema. Biopsied. Erythematous duodenopathy. --Lipase 242 --Pathology pending Appreciate GI input Continue IV Protonix twice daily Will need repeat CT if no improvement Advance diet as tolerated Continue IV fluids Counseled to quit alcohol use Cervical spondylosis with radiculopathy Chronic cervical pain --CT Neck:No acute fracture or subluxation in the cervical spine. Cervical spondylosis. -- MRI:Severe arthrosis of the right C2-C3 facet with associated marrow and soft tissue edema. Moderate multilevel facet arthrosis and mild degenerative disc disease within the cervical spine. No severe central canal stenosis. Mild multilevel central canal stenosis. Multilevel neural foraminal stenosis, as above.Reversal of the cervical lordosis. -- Appreciate Ortho Spine input Consulted pain management for possible injection Hypertension Likely situational Monitor blood pressure Consider adding antihypertensives if blood pressure persistently elevated HCV untreated GERD on PPI Other Chronic Conditions: Chronic anemia ADHD, anxiety/mood disorder Past history of substance abuse ongoing tobacco abuse Continue home medications as able DVT Px: SCDs for now Code Status Full code Disposition Home Admission and Anticipated Discharge Date Admission Date: February 05, 2025 Subjective Patient is seen and examined at bedside Abdominal pain much improved Tolerating current diet Reports ongoing neck pain Discussed with orthospine today No new complaints Denies any chest pain, dyspnea, nausea, vomiting, dizziness Review of Systems Review of Systems: All systems reviewed & are unremarkable except as noted in Subjective Physical Exam Physical Exam: Physical Exam: Vitals signs as noted above General Appearance:Overweight, no apparent distress Head: normocephalic, Atraumatic Eyes: normal inspection, EOMI Neck: supple, Trachea midline Respiratory/Chest: Normal breath sounds, CTA, No accessory muscle use Cardiovascular: S1, S2, No murmur Abdomen/GI:Soft, epigastric tender, Bowel sounds present Extremities/Musculoskeletal:normal inspection, no edema Neurologic/Psych:AAOX3, grossly no focal neurological deficits Skin: normal color, warm Results & Data Results & Data Vital Signs (Past 12 Hours) Vital Signs Temp Pulse Pulse Resp BP Pulse Ox O2 Del Method 02/06/25 04:49 36.7 C 99 H 19 171/96 H 96 Room Air 02/05/25 22:12 102 H 02/05/25 21:55 36.7 C 106 H 19 158/87 H 97 Room Air Laboratory Results Short CBC 02/05/25 02/06/25 Range/Units 07:26 05:28 WBC 10.23 9.35 (4.8-10.8) K/ul Hgb 10.9 L 10.6 L (14.0-18.0) g/dL Hct 32.2 L 32.0 L (42.0-52.0) % Plt Count 537 H 558 H (130-400) K/uL BMP 02/05/25 02/06/25 07:26 05:28 Sodium 135 L 138 Potassium 3.8 4.7 D Chloride 99 103 Carbon Dioxide 24 26 BUN 15 13 Creatinine 1.29 1.18 Glucose 90 111 H Calcium 9.7 9.5 Liver Function 02/05/25 02/06/25 Range/Units 07:26 05:28 Total Bilirubin 0.4 0.3 (0.2-1.0) mg/dl AST 19 20 (13-39) U/L ALT 13 13 (7-52) U/L Alkaline Phosphatase 167 H 143 H (34-104) U/L Albumin 4.1 3.7 (3.4-5.0) gm/dl
[2025-02-06] MEDS: THIAMINE HCL 100 MG TAB PO SCH (09:11)
--- NOTE | 2025-02-06 09:52 | Gastroenterology Progress Note ---
Date of Service February 06, 2025 Assessment & Plan (1) Abdominal pain: Plan: No findings on EGD. If abdominal pain worsens/returns, would recommend repeating a CT scan of the abdomen/pelvis. Unclear if he has had a colonoscopy previously, but did note anemia on labs. Consider outpatient colonoscopy for further evaluation if not recently performed. Admission and Anticipated Discharge Date Admission Date: February 05, 2025 Supervising Physician Co-Signing Physician Notes I personally saw and examined the patient. I have reviewed the chart and agree with the documentation provided by the PACKING MACHINE FEEDER including discussion about the assessment, treatment and plan. Briefly, doing much better and ate [employer] in the morning without any issues. Stable for discharge. Follow-up outpatient for colonoscopy Subjective Patient is a 49 yo male with recent confinement at another facility for pancreatitis vs duodenal abnormality. He underwent an EGD on 02/05/25 that was unremarkable. He notes improvement of his abdominal pain. He is tolerating a diet. [employer] food wrappers on the bedside table. He denies any acute GI complaints. He notes he thinks he is being discharged today. H/H 10.6/32.0. Review of Systems Gastrointestinal: no abdominal pain, no nausea and no vomiting Physical Exam Gastrointestinal (Abdomen): normal bowel sounds, soft, nontender, no hepatosplenomegaly Results & Data Results & Data Vital Signs (Past 12 Hours) Vital Signs Temp Pulse Pulse Resp BP Pulse Ox O2 Del Method 02/06/25 04:49 36.7 C 99 H 19 171/96 H 96 Room Air 02/05/25 22:12 102 H 02/05/25 21:55 36.7 C 106 H 19 158/87 H 97 Room Air PG Care Time/CCT Total # of Minutes Spent Total Time Spent with Patient: Total time spent is greater than 50% in coordination of care (as documented) at patient's floor/unit and/or counseling patient: Coding Level of Care Code 61162 SUB INP/OBS CARE 2/35MIN Diagnoses Abdominal pain R10.9
--- NOTE | 2025-02-06 10:21 | Orthopedic Consultation ---
Date of Consultation February 06, 2025 Assessment & Plan (1) Cervical spondylosis with radiculopathy: At this time he has evidence of significant facet hypertrophy and are arthritis mostly at the C3-4 level on the right. I am recommending a consultation with interventional pain management for injections. I see no indication for surgical intervention. History of Present Illness Reason for Consultation: Cervicalgia Attending Physician: Mehrdad Gomez MD History of Present Illness This is a 49-year-old male who presents with multiple medical issues to the emergency room and subsequently admission. Throughout his stay he is complaining of cervicalgia. Imaging was obtained. He describes pain along the right upper cervical spine rating down his neck. He does have a history of involved in multiple sports including wrestling and boxing as well as working as a construction ironworker helper predisposing him to cervical spine pathology. He denies any radicular complaints at this time. Allergies Allergy/AdvReac Type Severity Reaction Status Date / Time hydrocodone [From Vicodin] Allergy Intermediate SHORT OF Verified 02/04/25 23:43 BREATH/HIVES Home Medications Medication Instructions Recorded Confirmed Type albuterol sulfate 90 mcg/actuation 2 puff inhalation Q4H PRN Wheezing 02/04/25 02/04/25 History aerosol inhaler bupropion HCl 300 mg 24 hr tablet, 300 mg PO QAM 02/04/25 02/04/25 History extended release (Wellbutrin XL) duloxetine 30 mg capsule,delayed 30 mg PO DAILY 02/04/25 02/04/25 History release duloxetine 60 mg capsule,delayed 60 mg PO DAILY 02/04/25 02/04/25 History release gabapentin 300 mg capsule 300 mg PO QID 02/04/25 02/04/25 History hydroxyzine HCl 50 mg tablet 50 mg PO HS PRN Insomnia 02/04/25 02/04/25 History oqurdocgygga-cun-qvbmt acid-vit 1 tab PO DAILY 02/04/25 02/04/25 History K-lycop 400 mcg-20 mcg-370 mcg tablet (Men's 50 Plus Multivitamin) omeprazole 20 mg capsule,delayed 20 mg PO DAILYBB 02/04/25 02/04/25 History release ondansetron HCl 4 mg tablet 4 mg PO Q6H PRN NAUSEA/VOMITING 02/04/25 02/04/25 History oxycodone 5 mg tablet 5 mg PO Q6H PRN Pain 02/04/25 02/04/25 History potassium gluconate 595 mg (99 mg) 595 mg PO DAILY 02/04/25 02/04/25 History tablet Patient History Social History Smoking Status: Light tobacco smoker Hx Alcohol Use: Yes Alcohol type: beer Hx Substance Use: Yes Last Used Substance: Just Prior to Arrival Preferred Language: Croatian Beliefs That Will Affect Care: None Current Living Situation: Other Current Living Situation Comment: Home Feels Safe at Home: Yes Safety Concerns: Feels Safe At This Time Physical Exam Physical Exam: On exam he is alert and oriented. He has reasonable cervical range of motion. Reasonable strength of testing upper extremities. Results & Data Vital Signs (Past 12 Hours) Vital Signs Temp Pulse Resp BP Pulse Ox O2 Del Method 02/06/25 04:49 36.7 C 99 H 19 171/96 H 96 Room Air
[2025-02-06 12:12] VITALS: BP 142/100; PULSE 101; RESP 18; TEMP 98.8
--- NOTE | 2025-02-06 12:24 | Pain Management Consultation ---
Date of Consultation February 06, 2025 Assessment & Plan (1) Cervicalgia: Plan 1. I did offer to perform cervical trigger point injections today to alleviate the pain. Risks and benefits were reviewed with the patient and he is understanding. He would like to proceed. Procedure was performed. 2. Recommend that he pursue physical therapy for this neck pain. 3. Could consider cervical medial branch blocks and subsequent radiofrequency ablation on an outpatient basis if not improved with trigger point injections. 4. Will sign off on the patient. Please contact with any questions or concerns. TRIGGER POINT INJECTION Injection Sites: Left cervical paraspinal 2 sites, left splenis capitis 3 sites Medications Given: 7 mL 0.5% Ropivacaine MPF 2 mL Toradol 30mg/mL 1 mL Kenalog 40mg/mL Prior to starting, the diagnosis and the procedure was reviewed with the patient in detail. Possible risks and complications including infection, bleeding, damage to surrounding structures and increased pain were discussed. Alternative therapies were also reviewed. All questions were answered and they agreed to proceed. Informed consent was obtained. Allergies and medication list was reviewed. The patient was placed in sitting position. Immediately prior to starting the procedure, a time out was conducted with the staff and the patient where the patient was identified, proposed procedure was verified, consent was reviewed and the proper site for the planned procedure was identified. Patient was not given any intravenous sedation and constant verbal contact was maintained throughout the procedure. On examination, no signs of skin breakdown or infection were noted at the injection site. The site was cleansed with CloraPrep followed by alcohol. Sterile technique was used throughout the procedure. After identifying skeletal landmarks, 2 mL was injected into each site using a 25-gauge 1-1/2 inch needle. Aspiration was negative. Hemostasis noted. Patient tolerated the procedure uneventfully without complications. History of Present Illness Reason for Consultation: Neck pain Attending Physician: Mehrdad Gomez MD History of Present Illness This is a 49-year-old male that has been admitted to the [facility] pain service for pancreatitis and alcohol withdrawal. [facility] pain management was consulted for left-sided neck pain that has been ongoing for approximately 3 months without any specific injury. He describes a deep aching pain along the left upper cervical region that will radiate down to the left scapula. He does report associated headaches intermittently. Has previously tried Tylenol and ibuprofen without any significant improvement. No radicular symptoms down the arms. No arm weakness. Pain is rated 0/10 at its best and 4/10 at its worst. Pain is aggravated with turning his head towards the left. Case discussed with Dr. Erma Dubose Allergies Allergy/AdvReac Type Severity Reaction Status Date / Time hydrocodone [From Vicodin] Allergy Intermediate SHORT OF Verified 02/04/25 23:43 BREATH/HIVES Home Medications Medication Instructions Recorded Confirmed Type albuterol sulfate 90 mcg/actuation 2 puff inhalation Q4H PRN Wheezing 02/04/25 02/04/25 History aerosol inhaler bupropion HCl 300 mg 24 hr tablet, 300 mg PO QAM 02/04/25 02/04/25 History extended release (Wellbutrin XL) duloxetine 30 mg capsule,delayed 30 mg PO DAILY 02/04/25 02/04/25 History release duloxetine 60 mg capsule,delayed 60 mg PO DAILY 02/04/25 02/04/25 History release gabapentin 300 mg capsule 300 mg PO QID 02/04/25 02/04/25 History hydroxyzine HCl 50 mg tablet 50 mg PO HS PRN Insomnia 02/04/25 02/04/25 History zweslapxcbak-bfn-vjmae acid-vit 1 tab PO DAILY 02/04/25 02/04/25 History K-lycop 400 mcg-20 mcg-370 mcg tablet (Men's 50 Plus Multivitamin) ondansetron HCl 4 mg tablet 4 mg PO Q6H PRN NAUSEA/VOMITING 02/04/25 02/04/25 History oxycodone 5 mg tablet 5 mg PO Q6H PRN Pain 02/04/25 02/04/25 History potassium gluconate 595 mg (99 mg) 595 mg PO DAILY 02/04/25 02/04/25 History tablet carvedilol 3.125 mg tablet 3.125 mg PO BIDM #60 tabs 02/06/25 Rx pantoprazole 40 mg tablet,delayed 40 mg PO BID #60 tabs 02/06/25 Rx release thiamine HCl (vitamin B1) 100 mg 100 mg PO QAM #30 tabs 02/06/25 Rx tablet Pain History Previous Imaging and Results Imaging: CT cervical spine wo con CLINICAL HISTORY: pain TECHNIQUE: Computed tomography of the cervical spine was performed without intravenous contrast. Contiguous axial images were obtained from the skull base to T2, with sagittal and coronal reformatted images reconstructed from the axial data. CT scan was performed according to ALARA (as low as reasonably achievable). COMPARISON: None. FINDINGS: Loss of cervical lordosis is suggestive of the possibility of muscle spasm or positional change. Degenerative changes are present in the cervical spine in the form of multilevel marginal osteophytes, disc space reduction, and facet arthrosis. Mild anterolisthesis of the C2 over C3 vertebra is noted. The cervical vertebral bodies are normal in height and alignment, with no evidence of fracture or subluxation. The lateral masses of C1 are symmetrical, and the dens is intact. Prevertebral soft tissues are not widened. The remaining suprahyoid and infrahyoid soft tissues in the neck are unremarkable. Posterior uncovertebral arthrosis is noted at the C3-C4, C5-C6, and C6-C7 levels, which is indenting the ventral thecal sac and causes bilateral neuroforaminal narrowing. The thyroid gland appears unremarkable. IMPRESSION: 1. No acute fracture or subluxation in the cervical spine. 2. Cervical spondylosis. Electronically signed by Marcus Castillo 02-05-2025 02:20 AM Patient History Social History Smoking Status: Light tobacco smoker Hx Alcohol Use: Yes Alcohol type: beer Hx Substance Use: Yes Last Used Substance: Just Prior to Arrival Preferred Language: Belgian Communication Ability: Effective Beliefs That Will Affect Care: None Current Living Situation: Other Current Living Situation Comment: Home Feels Safe at Home: Yes Safety Concerns: Feels Safe At This Time Assistive Devices: None Physical Exam Physical Exam: GENERAL: This is a 49-year-old male in no acute distress. HEAD/FACE: Normocephalic and atraumatic. EYES: No drainage or conjunctival injection. ENT: Nose without bleeding or discharge. Oral mucosa moist. NECK: Full ROM in all planes. Mild tenderness along the left upper cervical facet joints with mild overlying paravertebral muscle spasm. Negative Spurling maneuver. RESPIRATORY: Patient with unlabored breathing. No signs of respiratory distress. CHEST/AXILLA: Chest movement symmetrical. No deformities noted. BACK: Moves without difficulty SKIN: [place], warm and dry. No rash noted. MS/EXTREMITY: No swelling, no deformities. Moving extremities appropriately. NEURO: Alert and appears oriented. Speech is fluent. Cranial Nerves are grossly intact. PSYCH: Alert, pleasant, affect is calm
--- NOTE | 2025-02-06 12:45 | Discharge Summary ---
Date of Service February 06, 2025 Admission HPI Per Admitting Provider History obtained from patient and records. Medical history significant for HCV, GERD, pancreatitis, chronic anemia (baseline hemoglobin 11-12), osteoarthritis, ADHD, anxiety/mood disorder, history of left pneumothorax, lung nodule, past history of substance abuse, alcohol abuse, ongoing tobacco abuse. Recent confinement [facility] January 25 to 2024 for pancreatitis in the setting of alcohol abuse. 2 CAT scans of the abdomen and pelvis done during confinements. 01/26 Stranding along the course of the duodenum and pancreas, probably related to acute pancreatitis though can not exclude infectious or inflammatory changes of duodenum or other adjacent retroperitoneal structure. Clinical correlation. 01/27 1. Persistent abnormal thickening of the duodenal throughout with increasing surrounding inflammatory change extending into the right and left anterior pararenal spaces which then extend into the right and left pelvis. There is increased edema of the 4th portion of the duodenum. No perforation of the duodenal or retroperitoneal abscess identified. 2. There is mild stranding around the head of the pancreas, but this most likely represents a duodenal process rather than a pancreatitis. 3. There are a few diverticula of the sigmoid colon but no diverticulitis. 4. Mild increase in right basilar atelectasis and new trace right effusion. 5. No free air. 6. Probable early anasarca in the subcutaneous tissues of the pelvis. 7. Perifissural nodule along the inferior right major fissure.Recommend follow-up CT Chest in 6-12 months. 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 Persistent achy upper abdominal pain with 1 episode of bilious emesis. No chest pain, no SOB. No fever, no chills. Admits to 1 alcoholic beverage intake upon returning home last week. Persistent right sided neck pain going to his ear for 3 months now without arm or leg weakness. No recollection of trauma. Medical History as above Surgical History : Dental surgery, hernia repair, chest tube placement, appendectomy Family History : Hypertension Personal/Social history : 1 pack weekly, alcohol abuse as per records, disabled Admission Exam Per Admitting Provider GENERAL: Comfortable, slightly restless, obese, no respiratory distress SKIN: Normal color, warm HEENT: [place] palpebral conjunctivae, no ptosis, dry buccal mucosa NECK : Supple, right cervical tenderness CHEST : CTA, no tenderness HEART : Tachycardic, no obvious murmurs ABDOMEN: Some distention, epigastric tenderness EXTREMITIES : No LE swelling/tenderness, palpable pulses, no other conspicuous deformities noted NEUROLOGIC : Coherent, no facial asymmetry, restless, no other gross focality Principal Diagnosis Alcoholic pancreatitis Acute gastritis Cervical spondylosis with radiculopathy Hypertension Discharge Data Allergies Allergy/AdvReac Type Severity Reaction Status Date / Time hydrocodone [From Vicodin] Allergy Intermediate SHORT OF Verified 02/04/25 23:43 BREATH/HIVES Consultations 02/05/25 00:42 ED Decision to Admit Stat 02/05/25 02:58 Consult Gastroenterology Routine 02/05/25 15:51 Consult Orthopedic Spine Surgery Routine 02/06/25 10:27 Consult Pain Management Routine Procedures Performed Operation Date: 02/05/25 16:30 Actual Procedures p EGD Biopsy Cytology - Musa Steiner MD Ordered Studies Laboratory Results WBC 9.35 K/ul (4.8-10.8) 02/06/25 05:28 RBC 3.58 M/uL (4.70-6.10) L 02/06/25 05:28 Hgb 10.6 g/dL (14.0-18.0) L 02/06/25 05:28 Hct 32.0 % (42.0-52.0) L 02/06/25 05:28 MCV 89.4 fL (80.0-100.0) 02/06/25 05:28 MCH 29.6 pg (25.0-34.0) 02/06/25 05:28 MCHC 33.1 g/dL (32.0-36.0) 02/06/25 05:28 RDW Std Deviation 43.3 fL (36.4-46.3) 02/06/25 05:28 RDW Coeff of Serenity 13.2 % (11.5-14.5) 02/06/25 05:28 Plt Count 558 K/uL (130-400) H 02/06/25 05:28 MPV 9.5 fL (9.4-12.4) 02/06/25 05:28 Immature Gran % (Auto) 3.0 % 02/05/25 07:26 Neut % (Auto) 69.1 % 02/05/25 07:26 Lymph % (Auto) 17.9 % 02/05/25 07:26 Mccormick % (Auto) 7.6 % 02/05/25 07:26 Eos % (Auto) 1.6 % 02/05/25 07:26 Baso % (Auto) 0.8 % 02/05/25 07:26 Neut # (Auto) 7.07 K/uL (1.40-6.50) H 02/05/25 07:26 Lymph # (Auto) 1.83 K/uL (1.20-3.40) 02/05/25 07:26 Mccormick # (Auto) 0.78 K/uL (0.11-0.59) H 02/05/25 07: Eos # (Auto) 0.16 K/uL (0.00-0.50) 02/05/25 07:26 Baso # (Auto) 0.08 K/uL (0.00-0.20) 02/05/25 07: Immature Gran # (Auto) 0.31 K/uL (0.01-0.20) H 02/05/25 07:26 Sodium 138 mmol/L (136-145) 02/06/25 05:28 Potassium 4.7 mmol/L (3.5-5.1) D 02/06/25 05:28 Chloride 103 mmol/L (98-107) 02/06/25 05:28 Carbon Dioxide 26 mmol/L (21-32) 02/06/25 05:28 Anion Gap 9 (3-11) 02/06/25 05:28 BUN 13 mg/dl (6-23) 02/06/25 05:28 Creatinine 1.18 mg/dl (0.6-1.4) 02/06/25 05:28 Est Cr Clr Drug Dosing 78.7 ml/min 02/06/25 05:28 eGFR 75.17 02/06/25 05:28 BUN/Creatinine Ratio 11.0 (10-20) 02/06/25 05:28 Glucose 111 mg/dl (70-99(Fasting)) H 02/06/25 05:28 Estimat Average Glucose 103 mg/dl 02/05/25 07:26 Hemoglobin A1c 5.2 % (4.5-5.6) 02/05/25 07:26 Lactate 0.8 mmol/L (0.4-2.0) 02/04/25 23:26 Calcium 9.5 mg/dl (8.6-10.3) 02/06/25 05:28 Magnesium 1.8 mg/dl (1.7-2.4) 02/04/25 23:06 Total Bilirubin 0.3 mg/dl (0.2-1.0) 02/06/25 05:28 AST 20 U/L (13-39) 02/06/25 05:28 ALT 13 U/L (7-52) 02/06/25 05:28 Alkaline Phosphatase 143 U/L (34-104) H 02/06/25 05:28 Total Protein 7.6 gm/dl (6.0-8.3) 02/06/25 05:28 Albumin 3.7 gm/dl (3.4-5.0) 02/06/25 05:28 Globulin 3.9 gm/dl (2.5-4.0) 02/06/25 05:28 Albumin/Globulin Ratio 0.9 (0.9-2) 02/06/25 05:28 Lipase 205 U/L (11-82) H 02/06/25 05:28 Procalcitonin 0.17 ng/ml (0-0.5) 02/04/25 23:06 Urine Color Yellow 02/04/25 22:40 Urine Appearance Clear (Clear) 02/04/25 22:40 Urine pH 5.5 (4.5-7.5) 02/04/25 22:40 Ur Specific Kinde 1.016 (1.000-1.030) 02/04/25 22:40 Urine Protein 2+ (Negative) H 02/04/25 22:40 Urine Glucose (UA) Negative (Negative) 02/04/25 22:40 Urine Ketones Negative (Negative) 02/04/25 22:40 Urine Blood Trace (Negative) H 02/04/25 22:40 Urine Nitrite Negative (Negative) 02/04/25 22:40 Urine Bilirubin Negative (Negative) 02/04/25 22:40 Urine Urobilinogen Negative (Negative) 02/04/25 22:40 Ur Leukocyte Esterase Negative (Negative) 02/04/25 22:40 Urine WBC (Auto) 0-5 /hpf (0-5) 02/04/25 22:40 Urine RBC (Auto) 0-2 /hpf (0-2) 02/04/25 22:40 U Hyaline Cast (Auto) 3-5 /lpf (0-2) H 02/04/25 22:40 U Epithel Cells (Auto) 0-2 /hpf (0-2) 02/04/25 22:40 Urine Bacteria (Auto) None Seen (None Seen) 02/04/25 22:40 Urine Comment 02/04/25 22:40 Ethyl Alcohol mg/dL < 10.0 mg/dl (<10.0) 02/04/25 23:[address] 02/05/25 01:34 EXAM: CT cervical spine wo con CLINICAL HISTORY: pain TECHNIQUE: Computed tomography of the cervical spine was performed without intravenous contrast. Contiguous axial images were obtained from the skull base to T2, with sagittal and coronal reformatted images reconstructed from the axial data. CT scan was performed according to ALARA (as low as reasonably achievable). COMPARISON: None. FINDINGS: Loss of cervical lordosis is suggestive of the possibility of muscle spasm or positional change. Degenerative changes are present in the cervical spine in the form of multilevel marginal osteophytes, disc space reduction, and facet arthrosis. Mild anterolisthesis of the C2 over C3 vertebra is noted. The cervical vertebral bodies are normal in height and alignment, with no evidence of fracture or subluxation. The lateral masses of C1 are symmetrical, and the dens is intact. Prevertebral soft tissues are not widened. The remaining suprahyoid and infrahyoid soft tissues in the neck are unremarkable. Posterior uncovertebral arthrosis is noted at the C3-C4, C5-C6, and C6-C7 levels, which is indenting the ventral thecal sac and causes bilateral neuroforaminal narrowing. The thyroid gland appears unremarkable. IMPRESSION: 1. No acute fracture or subluxation in the cervical spine. 2. Cervical spondylosis. Electronically signed by Marcus Castillo 02-05-2025 02:20 AM Cervical Spine MRI 02/05/25 02:42 MRI OF THE CERVICAL SPINE WITHOUT CONTRAST CLINICAL HISTORY: Right-sided neck pain for 3 months. COMPARISON: Cervical spine CT February 05, 2025. TECHNIQUE: Utilizing a 1.5 Nusrat magnet and dedicated coil, multiplanar, multiecho imaging of the cervical spine was performed without IV contrast. FINDINGS: There is reversal of the cervical lordosis. Vertebral body heights are maintained. No marrow replacement is present. There is moderate marrow and mild soft tissue edema centered on the right C2-C3 facet joint. This is degenerative in etiology. Exam is mildly compromised by motion artifact but is diagnostic. There is no intracanalicular mass or fluid collection. Cervical cord signal and caliber are normal. There is no prevertebral edema. C2-C3: There is mild disc bulge. This slightly effaces the ventral thecal sac. There is mild central canal stenosis. Severe right facet arthrosis is present. There is mild narrowing of the right neural foramen. The left neural foramen is patent. C3-C4: Diffuse disc bulge is present. This contacts the ventral aspect of the cord. There is mild central canal stenosis. The neural foramen are patent. There is moderate facet arthrosis. C4-C5: The central canal and neural foramen are patent. There is mild facet arthrosis. C5-C6: There is mild disc bulge with osteophyte formation. The central canal is patent. Uncovertebral hypertrophy and facet arthrosis result in mild bilateral neural foraminal stenosis. C6-C7: There is mild disc bulge. There is mild facet arthrosis. Neural foramen are patent. C7-T1: There is mild disc bulge. The central canal and neural foramen are pa tent. IMPRESSION: 1. No cervical spine fractures. No suspicious marrow replacement. 2. 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 This could account for the patient's symptoms. 3. Overall, moderate multilevel facet arthrosis and mild degenerative disc disease within the cervical spine. No severe central canal stenosis. Mild multilevel central canal stenosis. 4. Multilevel neural foraminal stenosis, as above. 5. Reversal of the cervical lordosis. ACT 112: Negative or not required by law. Electronically signed by: Stefan Odonnell M.D. 02/05/2025 3:34 PM Chest X-Ray 02/05/25 03:27 EXAM: XR chest 1V portable CLINICAL HISTORY: PRE MRI. TECHNIQUE: An X-ray image of the chest was obtained in the anteroposterior (PA) projection. COMPARISON: No prior studies are available for comparison. FINDINGS: Pulmonary Parenchyma: The lungs are clear bilaterally. There is no evidence of consolidation, collapse, or focal opacities. No pulmonary nodules are identified. There is no evidence of pleural effusion or pleural thickening. Heart and Mediastinum: The heart size and shape are normal. There is no mediastinal widening or masses. No hilar or mediastinal lymphadenopathy is present. Bony Thorax: The bony thorax appears intact without fractures or deformities. Soft Tissues: The soft tissues overlying the chest wall are unremarkable. IMPRESSION: No acute cardiopulmonary abnormalities are identified. Electronically signed by Jaun Ag 02-05-2025 05:07 AM Orbit X-Ray 02/05/25 03:27 EXAM: XR orbits for MRI CLINICAL HISTORY: Screening for foreign body for MRI. TECHNIQUE: X-ray examination of the orbits was performed in PA and lateral views. COMPARISON: None. FINDINGS: Orbital Margins The bony orbital margins appear intact bilaterally, with no evidence of fractures, deformities, or lytic lesions. The zygomatic arches are symmetrical and show no abnormalities. Soft Tissues A tiny linear density is seen overlapping the right frontal region. The lateral view shows its location within the soft tissues outside the bone, measuring 2 x 1 mm. The periorbital soft tissues are unremarkable, with no evidence of swelling, mass effect, or foreign bodies. The extraocular muscles are not directly visualized on X-ray, but there are no signs of displacement or other indirect abnormalities. Foreign Bodies No radiopaque foreign bodies are identified within the orbits or surrounding regions. IMPRESSION: 1. No radiographic evidence of metallic foreign bodies in the orbits. 2. However, a tiny linear density is seen overlapping the right frontal region. The lateral view shows its location within the soft tissues, outside the bone. This requires clinical correlation and can represent a foreign body in the soft tissues. Electronically signed by Jaun Ag 02-05-2025 04:45 AM Hospital Course (1) Acute pancreatitis: Alcoholic pancreatitis Acute gastritis --Reviewed outpatient CT suggestive of abnormal thickening of duodenum with surrounding inflammatory change. Mild stranding around the head of pancreas. Sigmoid diverticuli noted. Perifissural nodule along the inferior right major fissure. --S/P EGD:Normal esophagus. Acute gastritis, characterized by erythema. Biopsied. Erythematous duodenopathy. --Lipase 242 --Pathology pending Appreciate GI input Continue IV Protonix twice daily Will need repeat CT if no improvement Advance diet as tolerated Continue IV fluids Counseled to quit alcohol use Cervical spondylosis with radiculopathy S/P trigger point injections Chronic cervical pain --CT Neck:No acute fracture or subluxation in the cervical spine. Cervical spondylosis. -- MRI:Severe arthrosis of the right C2-C3 facet with associated marrow and soft tissue edema. Moderate multilevel facet arthrosis and mild degenerative disc disease within the cervical spine. No severe central canal stenosis. Mild multilevel central canal stenosis. Multilevel neural foraminal stenosis, as above.Reversal of the cervical lordosis. -- Appreciate Ortho Spine input Appreciate pain management help Hypertension Started on Coreg 3.25 mg twice a day Monitor blood pressure Monitor and adjust medications as needed HCV untreated GERD on PPI Other Chronic Conditions: Chronic anemia ADHD, anxiety/mood disorder Past history of substance abuse ongoing tobacco abuse Continue home medications as able DVT Px: SCDs for now Code Status Full code Disposition Home Total Time Total Time Spent Total Time Spent (In Minutes): 54 minutes Discharge Plan Discharge Items Patient Disposition: Home - Self-Care Reason For Visit: PANCREATITIS, ALCOHOL ABUSE Discharge Diagnosis: Alcoholic pancreatitis Acute gastritis Cervical spondylosis with radiculopathy Hypertension Condition on Discharge: Fair Activity: Per Instructions section Exercise/Sports: Gradually increase as tolerated Non-emergency contact: Primary Care Provider, Surgeon and [employer] Call non-emergency contact if: you have any medication questions, your symptoms worsen, your pain is concerning for you and you have a fever Follow-up/Referrals: Sohan Moreno MD [Primary Care Provider] - (Date & Time 02/11/2025 12:40 PM Provider: Shiv Judge DO [facility] ) Diet: Low Fiber Addtl Attending Provider Instructions: -- Follow-up with your primary care physician in 1 week as advised --Follow-up with orthopedics spine surgeon Dr. Palomo as recommended --Quit drinking alcohol as advised --Monitor your blood pressure regularly and discuss with your primary care physician for further adjustment of medications as needed. -- Your pathology is pending at the time of discharge. Follow-up with your physician for results. -- Your field operations coordinator recommends you to obtain colonoscopy as outpatient. Discussed with your primary care physician for further recommendations. Seek immediate medical attention if your symptoms reoccur or worsen Please review medication list provided on discharge for any medication changes as instructed. Please call if you have any questions or problems. You can reach a [facility] hospitalist on duty at [facility] 24 hours a day by calling [phone] Pending Studies at Discharge: Yes Studies:: Pathology Stand-Alone Forms: My [facility], Smoking Cessation Medications and DC Order Prescriptions: New thiamine HCl (vitamin B1) 100 mg Tablet 100 mg PO QAM Qty: 30 0RF pantoprazole 40 mg Tablet,Delayed Release (Dr/Ec) 40 mg PO BID Qty: 60 1RF carvedilol 3.125 mg Tablet 3.125 mg PO BIDM Qty: 60 0RF Continued ondansetron HCl [Zofran] 4 mg Tablet 4 mg PO Q6H PRN (Reason: NAUSEA/VOMITING) hydroxyzine HCl 50 mg Tablet 50 mg PO HS PRN (Reason: Insomnia) gabapentin 300 mg Capsule 300 mg PO QID albuterol sulfate [ProAir HFA] 90 mcg/actuation Hfa Aerosol Inhaler 2 puff INHALATION Q4H PRN (Reason: Wheezing) oxycodone 5 mg Tablet 5 mg PO Q6H PRN (Reason: Pain) bupropion HCl [Wellbutrin XL] 300 mg Tablet Extended Release 24 Hr 300 mg PO QAM duloxetine 30 mg Capsule,Delayed Release(Dr/Ec) 30 mg PO DAILY Rx Instructions: TOTAL DOSE 90 MG--TAKES WITH 60 MG CAP. duloxetine 60 mg Capsule,Delayed Release(Dr/Ec) 60 mg PO DAILY Rx Instructions: TOTAL DOSE 90 MG--TAKES WITH 30 MG CAP. Men's 50 Plus Multivitamin 400-20-370 mcg Tablet 1 tab PO DAILY Held potassium gluconate 595 mg (99 mg) Tablet 595 mg PO DAILY Hold Instructions: Hold until further recommendations from your primary care physician Discontinued omeprazole 20 mg Capsule,Delayed Release(Dr/Ec) 20 mg PO DAILYBB Discharge Orders: Discharge Order (Routine); Ordered 02/06/25 Ordered By: Mehrdad Gomez Admission Data Admit Date/Time: 02/05/25 01:34 Attending Provider: Mehrdad Gomez Admit Provider: Loco Gan Primary Care Provider: Sohan Moreno Other Providers: Loco Gan; Brian Norman; Issac Perales; Judi Valdes; Angélica Freeman; Stacie Renae; Christa De La O; Tod Child; Frannie Powell; Adan Dubon; Arcadio Ball; Anne Ramos; Lani North; Ivet Morales; Duglas Swain; Matthew Wylie; Elmer Hutchinson; Martha Long; Robert Jaramillo Jr; Stephen Meade; Lee Dutton; Musa Steiner; Kaycee Godoy; Raymundo Elizabeth I; Claudia Echevarria; Tahir Trejo; Isauro Lay; Raymond Hanks; Sajan Yang; Anne Lamas; Kenroy Palomo; Ravindra Zayas Other Interventions: Discharge Summary Assessment (RN) Last Done: 02/05/25 12:18
[2025-02-07] MEDS ORDERED: GABAPENTIN 600 MG TAB PO SCH (01:00)
[2025-02-08] MEDS ORDERED: GABAPENTIN 600 MG TAB PO SCH (13:00)
== END 2025-02-06 13:15 | disposition home or self-care (01) | DRG 440 ==
LOC: ED 22:37 → 2N 02-05 01:34 → 2E 02-05 07:50